=== PATIENT | male | born 1990 | race African-American/Black ===

== ENCOUNTER 2020-09-26 01:34 | Emergency (ER) | payer MEDICAID, SELFPAY ==
[~2020-09-26] VITALS: Ht 172.7 cm; Wt 77.1 kg
[2020-09-26 01:48] VITALS: BP_SYST 168
--- NOTE | 2020-09-26 01:48 | NUR ---
Patient to ER bed 6 to gown for evaluation. Side rails up. Report given to self. ER at bedside examining patient.
[2020-09-26] MEDS: ACETAMINOPHEN 500 MG TABLET PO ONE (02:05)
[2020-09-26 02:42] VITALS: BP_SYST 164
--- NOTE | 2020-09-26 02:42 | NUR ---
Patient given written and verbal discharge instructions and verbalizes understanding. ER discussed with patient the results and treatment provided. Patient in stable condition.D. Pain Scale 0. Opportunity for questions provided and answered. Medication side effect fact sheet provided. Addendum: 09/26/20 at 0246 by [email or web address] law enforcement will follow up with covid results.
== END 2020-09-26 02:42 ==
LOC: SED 01:34
DX: R51.9 Headache, unspecified (principal); R05 Cough; Z20.822 Contact with and (suspected) exposure to COVID-19
CPT/HCPCS: 36415; 99283